=== PATIENT | female | born 1965 | race American Indian/Alaskan Native ===

== ENCOUNTER 2022-02-09 12:44 | Emergency (ER) | payer SELFPAY ==
[2022-02-09] MEDS ORDERED: levETIRAcetam 1000 MG/NS 0.75% 1,000 MG/100 ML BAG IV ONE (13:10)
[2022-02-09] MEDS ORDERED: hydrALAZINE 20 MG/1 ML INJ IV ONE (13:47)
[2022-02-09] MEDS ORDERED: niCARdipine DRIP 40 MG/200 ML BAG IV ONE (16:30)
--- NOTE | 2022-02-09 16:34 | Cat Scan Report ---
CT HEAD WITHOUT CONTRAST INDICATION / CLINICAL INFORMATION: seizure. TECHNIQUE: All CT scans at this location are performed using CT dose reduction for ALARA by means of automated e xposure control. COMPARISON: None available. FINDINGS: HEMORRHAGE: There is a parenchymal hematoma appears to be on the inferior lateral aspect of the right parietal lobe. The hematoma measures about 18 x 11 mm in transverse dimension by 8 mm in superior-in ferior dimension. The etiology of the hemorrhage is unclear. This is an unusual location for hyperten sive hemorrhage. EXTRA-AXIAL SPACES: Cortical sulci, sylvian fissures and basilar cisterns have an unremarkable appear ance. VENTRICULAR SYSTEM: The third and lateral ventricles are of normal size and configuration. CEREBRAL PARENCHYMA: Generalized decreased brain parenchymal attenuation is observed compatible with microvascular ischemic change in this hypertensive patient. More focal areas of decreased brain paren chymal attenuation are seen in several locations consistent with remote small deep infarctions the T6 findings are present in the white matter of the right frontal lobe. MIDLINE SHIFT OR HERNIATION: There is no indication of trans falcine or uncal herniation. CEREBELLUM / BRAINSTEM: Brainstem and cerebellum have an unremarkable appearance. MIDLINE STRUCTURES:No abnormalities of the pituitary gland or pineal region are identified. INTRACRANIAL VESSELS:No abnormalities are identified on this noncontrast head CT. ORBITS: visualized portions of the orbits have an unremarkable appearance. SOFT TISSUES of HEAD: No significant abnormality. CALVARIUM: Evaluation of bone windows reveals no abnormalities. PARANASAL SINUSES / MASTOID AIR CELLS: Visualized portions of the paranasal sinuses are free from inf lammatory mucosal disease. Mastoid air cells are normally pneumatized. ADDITIONAL FINDINGS: None. IMPRESSION: 1. 18 x 11 x 8 mm parenchymal hematoma along the inferolateral aspect of the right parietal lobe. 2. Microvascular ischemic change and evidence of several remote small deep infarctions as described a yuliana. CRITICAL RESULT: Time of Discovery (BALANCER SCALE/CDT): 1520 Central standard time Time of Communication (BALANCER SCALE/CDT): 1527 Central standard time Licensed Practitioner Receiving Report: Dr. Rosenbaum of the [facility] emergency de partment. Read-Back Performed: Not applicable. Signer Name: Eliot Grant MD Signed: 02/09/2022 4:30 PM Workstation Name: [email or web address]
[2022-02-09] MEDS ORDERED: hydrALAZINE 20 MG/1 ML INJ ONE (16:43)
--- NOTE | 2022-02-09 17:05 | Emergency Department Report ---
ED General Adult HPI - General Chief complaint: Seizure Stated complaint: SZ Time Seen by Provider: 02/09/22 13:06 Source: EMS Mode of arrival: Stretcher Limitations: Altered Mental Status - History of Present Illness Initial comments: The patient presents to the emergency department with a chief complaint of seizure activity. Patient has a history of seizures and hypertension and per EMS the patient had a seizure while at home. Patient received 2 g of Ativan IM prior to arrival to the ED. Patient is somnolent on arrival but responds to verbal stimuli. Per EMS the family states the patient has not compliant with her medications. -: Sudden Severity scale (0 -10): 0 Consistency: now resolved Improves with: none Worsens with: none Associated Symptoms: denies other symptoms Treatments Prior to Arrival: none - Related Data Allergies Allergy/AdvReac Type Severity Reaction Status Date / Time Unable to Assess Allergy Unverified 02/09/22 12:55 ED Review of Systems ROS: Stated complaint: SZ Other details as noted in HPI Comment: Unobtainable due to pts medical conditions ED Past Medical Hx - Past Medical History Hx Hypertension: Yes Hx Seizures: Yes ED Physical Exam - General Limitations: Altered Mental Status General appearance: other (Somnolent but easily arousable with verbal stimulation) - Head Head exam: Present: atraumatic, normocephalic - Eye Eye exam: Present: normal appearance, PERRL, EOMI - ENT ENT exam: Present: mucous membranes dry - Neck Neck exam: Present: normal inspection - Respiratory Respiratory exam: Present: normal lung sounds bilaterally. Absent: respiratory distress, wheezes, rales, rhonchi - Cardiovascular Cardiovascular Exam: Present: regular rate, normal rhythm - GI/Abdominal GI/Abdominal exam: Present: soft, distended, normal bowel sounds. Absent: tenderness - Extremities Exam Extremities exam: Present: normal inspection - Neurological Exam Neurological exam: Present: other (GCS: 14) - Psychiatric Psychiatric exam: Present: other (Not able to assess due to the patient's condition) - Skin Skin exam: Present: warm, dry, intact. Absent: normal color ED Course Vital Signs 02/09/22 02/09/22 02/09/22 12:44 13:21 13:27 Temperature 98.4 F Pulse Rate 92 H 85 95 H Respiratory 14 18 18 Rate Blood Pressure Blood Pressure 232/129 212/124 224/131 [Left] O2 Sat by Pulse 96 98 97 Oximetry 02/09/22 02/09/22 02/09/22 14:17 16:45 17:00 Temperature Pulse Rate 95 H Respiratory 18 23 Rate Blood Pressure 201/130 236/139 Blood Pressure 162/109 [Left] O2 Sat by Pulse 96 95 98 Oximetry 02/09/22 02/09/22 02/09/22 17:15 17:31 17:45 Temperature Pulse Rate 101 H 96 H Respiratory 18 33 H Rate Blood Pressure 154/94 172/107 161/89 Blood Pressure [Left] O2 Sat by Pulse 98 99 96 Oximetry 02/09/22 02/09/22 02/09/22 18:00 18:15 18:31 Temperature Pulse Rate 99 H 99 H 101 H Respiratory 28 H 26 H 26 H Rate Blood Pressure 139/83 145/76 140/78 Blood Pressure [Left] O2 Sat by Pulse 96 95 95 Oximetry 02/09/22 02/09/22 02/09/22 18:45 19:01 19:15 Temperature Pulse Rate 103 H 106 H Respiratory 29 H 35 H 30 H Rate Blood Pressure 149/79 139/82 138/78 Blood Pressure [Left] O2 Sat by Pulse 96 97 95 Oximetry ED Medical Decision Making - Lab Data Result diagrams: 02/09/22 16:42 02/09/22 16:42 Lab Results 02/09/22 02/09/22 02/09/22 Range/Units 16:42 16:42 16:42 WBC 10.5 (4.5-11.0) K/mm3 RBC 6.10 H (3.65-5.03) M/mm3 Hgb 15.2 H (10.1-14.3) gm/dl Hct 45.4 H (30.3-42.9) % MCV 74 L (79-97) fl MCH 25 L (28-32) pg MCHC 34 (30-34) % RDW 17.5 H (13.2-15.2) % Plt Count 231 (140-440) K/mm3 Lymph % (Auto) 8.1 L (13.4-35.0) % [place] % (Auto) 2.5 (0.0-7.3) % Eos % (Auto) 0.2 (0.0-4.3) % Baso % (Auto) 0.5 (0.0-1.8) % Lymph # (Auto) 0.9 L (1.2-5.4) K/mm3 [place] # (Auto) 0.3 (0.0-0.8) K/mm3 Eos # (Auto) 0.0 (0.0-0.4) K/mm3 Baso # (Auto) 0.1 (0.0-0.1) K/mm3 Seg Neutrophils % 88.7 H (40.0-70.0) % Seg Neutrophils # 9.3 H (1.8-7.7) K/mm3 PT 15.2 H (12.2-14.9) Sec. INR 1.08 (0.87-1.13) APTT 32.6 (24.2-36.6) Sec. Sodium 140 (137-145) mmol/L Potassium 3.4 L (3.6-5.0) mmol/L Chloride 100.6 (98-107) mmol/L Carbon Dioxide 24 (22-30) mmol/L Anion Gap 19 mmol/L BUN 11 (7-17) mg/dL Creatinine 0.6 (0.6-1.2) mg/dL Estimated GFR > 60 ml/min BUN/Creatinine Ratio 18 % Glucose 158 H (65-100) mg/dL Calcium 9.3 (8.4-10.2) mg/dL Total Bilirubin (0.1-1.2) mg/dL Direct Bilirubin (0-0.2) mg/dL Indirect Bilirubin mg/dL AST (5-40) units/L ALT (7-56) units/L Alkaline Phosphatase (35-129) units/L Total Protein (6.3-8.2) g/dL Albumin (3.9-5) g/dL Albumin/Globulin Ratio % // Range/Units 16:42 WBC (4.5-11.0) K/mm3 RBC (3.65-5.03) M/mm3 Hgb (10.1-14.3) gm/dl Hct (30.3-42.9) % MCV (79-97) fl MCH (28-32) pg MCHC (30-34) % RDW (13.2-15.2) % Plt Count (140-440) K/mm3 Lymph % (Auto) (13.4-35.0) % [place] % (Auto) (0.0-7.3) % Eos % (Auto) (0.0-4.3) % Baso % (Auto) (0.0-1.8) % Lymph # (Auto) (1.2-5.4) K/mm3 [place] # (Auto) (0.0-0.8) K/mm3 Eos # (Auto) (0.0-0.4) K/mm3 Baso # (Auto) (0.0-0.1) K/mm3 Seg Neutrophils % (40.0-70.0) % Seg Neutrophils # (1.8-7.7) K/mm3 PT (12.2-14.9) Sec. INR (0.87-1.13) APTT (24.2-36.6) Sec. Sodium (137-145) mmol/L Potassium (3.6-5.0) mmol/L Chloride (98-107) mmol/L Carbon Dioxide (22-30) mmol/L Anion Gap mmol/L BUN (7-17) mg/dL Creatinine (0.6-1.2) mg/dL Estimated GFR ml/min BUN/Creatinine Ratio % Glucose (65-100) mg/dL Calcium (8.4-10.2) mg/dL Total Bilirubin 0.40 (0.1-1.2) mg/dL Direct Bilirubin < 0.2 (0-0.2) mg/dL Indirect Bilirubin 0.2 mg/dL AST 16 (5-40) units/L ALT 21 (7-56) units/L Alkaline Phosphatase 163 H (35-129) units/L Total Protein 8.4 H (6.3-8.2) g/dL Albumin 4.6 (3.9-5) g/dL Albumin/Globulin Ratio 1.2 % - Medical Decision Making Upon arrival patient was somnolent and this was thought to be likely secondary to the patient receiving 2 mg of IM Ativan prior to arrival. Patient was given IV Keppra in the emergency department and hydralazine IV was ordered. Upon further evaluation of the patient the patient's blood pressure systolically was greater than 230. With the patient being somnolent and with elevated BP a CT of the head was obtained. CT head revealed parenchymal bleed. The patient's BP was still elevated thus Cardene drip was initiated. Contacted [facility] the patient was excepted by Dr. Link at 5:03 PM. Although the patient was excepted there were no available beds thus the patient will remain here until bed is available. I was instructed by Dr. Link that the patient is still in ED 4 hours after his phone call that we should repeat CT of the head to check for progression of the parenchymal hemorrhage. Repeat CT of the head was done status post 4 hours with no significant change. We received a phone call at approximately 2207 Critical Care Time: Yes Critical care time in (mins) excluding proc time.: 75 Critical care attestation.: If time is entered above; I have spent that time in minutes in the direct care of this critically ill patient, excluding procedure time. ED Disposition Clinical Impression: Cerebral parenchymal hemorrhage, Seizure Disposition: 02 SHORT TERM HOSPITAL Is pt being admited?: No Does the pt Need Aspirin: No Condition: Stable Referrals: PRIMARY CARE, [Primary Care Provider] - 3-5 Days
[2022-02-09 17:10] LABS: Basophils # (Auto) 0.1 K/mm3 (0.0-0.1); Basophils % (Auto) 0.5 % (0.0-1.8); Eosinophils % (Auto) 0.2 % (0.0-4.3); Hematocrit 45.4 % (30.3-42.9); Hemoglobin 15.2 gm/dl (10.1-14.3); Lymphocytes # (Auto) 0.9 K/mm3 (1.2-5.4); Lymphocytes % (Auto) 8.1 % (13.4-35.0); Mean Corpuscular HGB Conc 34 % (30-34); Mean Corpuscular Volume 74 fl (79-97); Monocytes # (Auto) 0.3 K/mm3 (0.0-0.8); Monocytes % (Auto) 2.5 % (0.0-7.3); Platelet Count 231 K/mm3 (140-440); Red Cell Distribution Width 17.5 % (13.2-15.2)
[2022-02-09 17:18] LABS: INR 1.08 (0.87-1.13); Partial Thromboplastin Time 32.6 Sec. (24.2-36.6)
[2022-02-09 17:26] LABS: Blood Urea Nitrogen 11 mg/dL (7-17); Calcium 9.3 mg/dL (8.4-10.2); Hemolysis Index 7
[2022-02-09 17:30] LABS: BUN/Creatinine Ratio 18
[2022-02-09] MEDS ORDERED: MORPHINE 4 MG/1 ML INJ IV ONE (17:32)
[2022-02-09] MEDS ORDERED: ONDANSETRON 4 MG/2 ML INJ IV ONE (17:32)
[2022-02-09 18:01] LABS: Alanine Aminotransferase 21 units/L (7-56); Albumin 4.6 g/dL (3.9-5)
[2022-02-09 18:04] LABS: Bilirubin,Direct < 0.2 mg/dL (0-0.2)
--- NOTE | 2022-02-09 21:55 | Cat Scan Report ---
CT head/brain wo con INDICATION / CLINICAL INFORMATION: 56 years Female; Repeat CT for evalprogression of parenchymal bleed. TECHNIQUE: Routine CT head without contrast. All CT scans at this location are performed using CT dos e reduction for ALARA by means of automated exposure control. COMPARISON: The study is compared with the earlier CT brain of 818 2021 x 3 50 6:00 PM Central standard time. FINDINGS: BRAIN / INTRACRANIAL CONTENTS: The motion significantly degrades the image quality despite repeat brianna ging. However, there is a persistent hematoma centered within the lateral right temporal lobe measuri ng 1.7 cm in greatest transverse dimension. This finding correlates with the earlier CT without signi ficant overall change. There is surrounding mild edema and mass effect. There also appears be suggest ion of slight adjacent subarachnoid blood which is unchanged. 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 Additionally, there are old infarcts along the right basal ganglia and arnold radiata. The ventricular system appears unchanged in size and configuration. ORBITS: No significant abnormality of visualized orbits. SINUSES / MASTOIDS: No significant abnormality in the visualized paranasal sinuses or mastoid air roland ls. CRANIOCERVICAL JUNCTION: No significant abnormality. ADDITIONAL FINDINGS: None. IMPRESSION: 1. The study is limited by motion. However, there is a persistent 1.7 cm hematoma within the lateral right temporal lobe as detailed above without significant overall change from the earlier CT performe d at 3:56 PM. The study was specified as stat and dictated emergently at 8:48 PM Central standard time. I was infor med by the technologist that coronal and sagittal reconstructions were unable to be performed on this patient. Signer Name: Rob Hair MD Signed: 02/09/2022 9:50 PM Workstation Name: [id number]
[2022-02-10 03:26] VITALS: BP 135/78
== END 2022-02-10 00:30 | disposition short-term general hospital (02) ==
LOC: ED 12:44
DX: I61.8 Other nontraumatic intracerebral hemorrhage (principal); R56.9 Unspecified convulsions; I10 Essential (primary) hypertension
CPT/HCPCS: 36415; 70450; 80048; 80076; 85025; 85610; 85730; 96365; 96366; 96375; 99291; J0360; J1953; J2270; J2405; J3490; 99285